=== PATIENT | male | born 1945 | race Caucasian/White ===

== ENCOUNTER 2018-10-25 09:04 | Inpatient (IN) | payer BC, MEDICARE, SELFPAY ==
[2018-10-25] VITALS (10 sets, daily range): BP systolic 127–166; BP diastolic 63–97; PULSE 55–64; RESP 14–18; TEMP 36.8–37.1; O2SAT 93–98; BMI 28.8; BMI 28.1; BMI 28.2
--- NOTE | 2018-10-25 09:17 | CT_ITS ---
STUDY: CT ABDOMEN AND PELVIS WITH CONTRAST REASON FOR EXAM: Male, 73 years old. Abdominal pain and vomiting. RADIATION DOSAGE (If Supplied By Facility): CTDIvol = ( 16.91 ) mGy, DLP = ( 1449.93 ) mGycm TECHNIQUE: Transaxial images were obtained from the dome of the diaphragm to the symphysis pubis without oral contrast. Isovue 300 100 IV was administered. Sagittal and coronal images were reconstructed. Individualized dose optimization techniques were used for this CT. COMPARISON: None. FINDINGS: Mild degree of increased markings at the lung bases with small cystic spaces suggestive of chronic interstitial fibrosis. Coronary artery calcification. There is decreased attenuation of the liver consistent with steatosis. Normal gallbladder and extrahepatic biliary system. There is mild splenomegaly. Normal pancreas. Normal bilateral adrenal glands. Normal right kidney. There is a 2.1 cm x 2.1 cm cyst in the upper pole of the left kidney. There is a small hiatal hernia. There is a moderate degree of fluid distention of the stomach. There are dilated loops of the small intestine with a non-distended colon consistent with a small bowel obstruction. The transition point is the proximal ileum. There are multiple colonic diverticula consistent with diverticulosis. The appendix is visualized and appears normal. Normal abdominal aorta. Normal inferior vena cava. Normal retroperitoneum. Distended urinary bladder. There is enlargement of the prostate gland. Small bilateral inguinal hernias containing fat. This is larger on the left side. There are degenerative changes of the visualized lumbar spine. Mild levoscoliosis. CT/Abdomen/Pelvis W IV Cont ONLY IMPRESSION: Findings indicative of small bowel obstruction with the transition point in the proximal ileum. Fluid distended stomach. Sigmoid diverticulosis. Enlarged prostate. Electronically Signed: Huy Dodson, at 11:22 EST , Service support ,
[2018-10-25] MEDS: 0.9% Normal Saline 1,000 ML 1000 ML IV (09:41)
--- NOTE | 2018-10-25 09:55 | ED.DCSUM_ITS ---
- ER Visit Summary Date of Service: 10/25/18 Chief Complaint: Abdominal pain History of Present Illness: The patient is a 73 M with lower abdominal pain for 3 days. The pain came on gradually and has been continuous. It feels like cramping. He never had this before. Nothing seemed to bring it on or make it worse. Associate with nausea, vomiting, and constipation. He denies any history of abdominal surgeries. He does have a history of diabetes and hypertension. He never had a colonoscopy. Denies fevers or bleeding. Denies urinary symptoms. Physical Examination: Afebrile and vital signs unremarkable except for a blood pressure of 164/97. He appears alert and oriented. No acute distress. Sitting comfortably. Heart regular rate and rhythm. Lungs clear. Abdomen tender in the lower hemiabdomen. No guarding or rebound. No distention. Normal bowel sounds. Skin normal in color without pallor or jaundice. Test Results: Laboratory studies, urinalysis, and CT pending. Emergency Department Course and Treatment: Patient declined pain medicine. He was treated with IV fluids while awaiting results. CBC normal. Metabolic panel showed a glucose of 447. Hepatic and lipase normal. Urinalysis unremarkable. CT showed a small bowel obstruction with a transition point in the proximal ileum with an enlarged prostate. NG was placed. KUB pending. Patient treated with additional fluids as well as insulin lispro. He said he has not been taking his metformin, glimepiride, and Starlix over the last couple days because of his symptoms. Dr. Chaves was contacted, but he is in the operating room. I left a message with the nurse. I do not believe the patient will need emergent surgery, furthermore he is on Eliquis. I spoke with Dr. Vee who will admit the patient. Treatment Plan: As above Disposition: Admission Impression: 1. Small bowel obstruction 2. Hyperglycemia This note was generated with [employer] dictation software. It may contain incorrect words, spelling, and punctuation that were not noted in review of the chart prior to signing ED Disposition - Plan for ED Patient: Referrals: Care Physician,No Primary [Primary Care Provider] -
[2018-10-25 09:58] LABS: Absolute Lymphocyte Count 2.05 X10^3/ul (0.83-4.51); Absolute Neutrophil Count 7.1 X10^3/uL (2.0-7.7); Basophil# 0.02 X10^3/uL; Basophil% 0.2 % (0-1); Eosinophil# 0.02 X10^3/uL; Eosinophils% 0.2 % (0-5); Hematocrit 48.3 % (40-54); Hemoglobin 16.1 g/dl (13.0-16.5); Lymphocyte # 2.05 X10^3/ul (4.0); Lymphocyte % 19.9 % (19-41); Mean Corp Hgb Conc 33.3 g/gl (32-36); Mean Corpuscular Hgb 31.6 pg (27.0-32.0); Mean Corpuscular Volume 94.9 fL (80-94); Mean Platelet Vol. 9.5 fl (6.2-12.0); Monocyte# 1.08 X10^3/uL; Monocyte% 10.5 % (0-10); Neutrophil # 7.11 X10^3/uL (2.7-7.7); Neutrophil % 68.9 % (47-70); POSITIVE COUNT NO; POSITIVE DIFFERENTIAL NO; POSITIVE MORPHOLOGY NO; Platelet Count 223 K/mm3 (150-450); RBC Distribution Width CV 13.2 % (11.6-14.6); RBC Distribution Width SD 45.4 fl (35.1-43.9); Red Blood Count 5.09 M/mm3 (4.6-6.2); White Blood Count 10.3 K/mm3 (4.4-11.0)
[2018-10-25 10:11] LABS: ALB/GLOB Ratio 0.9 RATIO (0.9-2.4); AST(SGOT) 25 U/L (15-37); Alanine Aminotransfer ALT/SGPT 30 U/L (16-61); Albumin, Serum 3.6 g/dL (3.2-5.0); Alkaline Phosphatase 93 U/L (45-117); Anion Gap 10 (5-15); BUN 28 mg/dL (7-18); BUN/Creat Ratio 20.6 RATIO (10-20); Calcium,Total 9.5 mg/dL (8.5-10.1); Chloride 97 mmol/L (98-107); Creatinine, Serum 1.36 mg/dL (0.70-1.30); EST Glomerular Filtration Rate 55 mL/min (>60); Est Glom Filt Rate - Afr Amer 66 mL/min (>60); Estimated Creatinine Clearance 56.24 ml/min; Globulin 4.1 g/dL (2.2-4.2); Glucose 447 mg/dL (74-106); Lipase 144 U/L (73-393); Protein, Total 7.7 g/dL (6.4-8.2); Sodium Level 131 mmol/L (136-145)
[2018-10-25 11:00] LABS: Bacteria 0 SEEN /hpf (None Seen); Mucous, Urine 0 SEEN /hpf (<or=2+); Red Blood Cells-Urine 0 SEEN /hpf (0-5); Squamous Epithelial Cells - UA 0 SEEN /hpf (0-5); White Blood Cells 0 SEEN /hpf (0-5)
[2018-10-25 11:04] LABS: Color, Urine Yellow (Yellow); Glucose, Dipstick 1000 mg/dl (Normal); Ketone-Dipstick 50 mg/dl (Negative); Leukocyte Esterase-Dipstick Negative /ul (Negative); Nitrite-Dipstick Negative (Negative); Occult Blood-Urine Negative /ul (Negative); Protein-Dipstick Negative (Negative); Specific Gravity, Urine 1.015 (1.002-1.030); Urine Bilirubin Dipstick Negative (Negative); Urine Clarity Clear (Clear); Urine Urobilinogen Normal (Normal)
--- NOTE | 2018-10-25 11:33 | RAD_ITS ---
STUDY: X-RAY - ABDOMEN/PELVIS REASON FOR EXAM: Male, 73 years old. Nasogastric tube placement TECHNIQUE: Single AP view of the abdomen / pelvis. COMPARISON: CT scan of the same day.. FINDINGS: Normal visualized lung bases. Nasogastric tube terminates in the upper stomach. There is a continued abnormal bowel gas pattern consistent with small bowel obstruction. Electronically Signed: Deny Chavez MD at 13:56 EST , Service support , RAD/Abdomen Single View (Portable)
[2018-10-25] MEDS: 0.9% Normal Saline 1,000 ML 999 ML IV (11:36)
[2018-10-25] MEDS: Insulin Lispro 100 UNIT/ML INSULN.PEN 10 UNIT SC (11:37)
--- NOTE | 2018-10-25 12:23 | CASEMGMT ---
RN CM Assessment Introduced role of RN CM to patient and significant other Renetta Estrada at bedside. Patient is alert, oriented and able to participate in RN CM Assessment. Care providers, pharmacy, and demographics verified. Presentation: Admitted for SBO. CC: Abd pain, N/V, Constipation. PCP: Dr Yanet [facility]- [facility]. Specialists: None Preferred Pharmacy: [facility] Insurance: Medicare A&B, [place] Prescription Benefit: Yes LNOK: Renetta Estrada Living Arrangements: Works for [employer], Lives 1/2 time at his home which is 2 story and has 3 steps. Lives other 1/2 time at [facility]- Split level at [address], [place] [address]. Independent with ambulation and ADL's. Transportation: Patient drives, DC transport- Ren[facility] DME: None, Needs a Glucometer as his broke. No preference on DME Company. HHC: None in past, No preference on Agency. SNF: None in past, No preference on Facility. DC PLAN: Home with no anticipated needs identified. Frances Douglas RNCM
--- NOTE | 2018-10-25 13:41 | NURSING ---
Addendum entered by Aurora Gallagher 10/25/18 14:48: discussed policy on gastrograffin w/ Madeline Pablo BLOOD BANK LABORATORY TECHNICIAN-RN Original Note: Received verbal order from Dr. Vee to give 150ml gastrograffin down NGT, get abdominal xray in 4 hours after gastrograffin is given and then again in a.m. which will assist in determination if Dr. Chaves takes the patient to OR tomorrow. Talked with radiology department regarding how to put order into computer. Aware per radiology that they have gastrograffin in radiology department that someone must come down to get. CONTACT CENTRE SUPERVISOR returned to unit with 5bottles of 30ml gastrograffin each. Discussed orders, policy of nursing administering gastrographin with assistance rn case manager hospice Wojciech, and primary RN. Discussed w/ Dr. Vee regarding her administering the gastrographin herself. Radha Og RN discussed order with Dr. Chaves at 's request. Radha Og obtained new order and discussed w/ Wojciech Assist. Managed Care Nurse.
--- NOTE | 2018-10-25 13:54 | PCM.HP.STD ---
Problem List (1) SBO (small bowel obstruction) Status: Acute (2) Type 2 diabetes mellitus Status: Chronic (3) HTN (hypertension) Status: Chronic (4) Atrial fibrillation Status: Chronic Qualifiers: Atrial fibrillation type: paroxysmal Qualified Code(s): I48.0 - Paroxysmal atrial fibrillation History of Present Illness Date of Admission: 10/25/18 Chief Complaint: Abdominal pain. The patient is a 73 year old M who presents the emergency room due to abdominal pain. Patient states his pain initially began Monday and he describes it as a cramping across his lower abdomen. He states pain has been worsening since it initially started on Monday. He reports his last bowel movement was Monday. He reports he typically has more regular bowel movements. He describes poor oral intake and associated nausea, vomiting. He denies history of small bowel obstruction. Denies other associated complaints. States he has never been hospitalized before. He has a past medical history of paroxysmal atrial fibrillation on anticoagulation with Eliquis, hypertension, type 2 diabetes mellitus. Past Medical History Past Medical History (Chronic Problems): Chronic Problems Type 2 diabetes mellitus (Chronic) HTN (hypertension) (Chronic) Atrial fibrillation (Chronic) Allergies No Known Allergies Allergy (Verified 10/25/18 09:07) Home Medications: Ambulatory Orders Medication Instructions Recorded Apixaban [Eliquis] 5 mg PO DAILY 10/25/18 Atenolol [Tenormin (beta wero)] 100 mg PO DAILY 10/25/18 Lisinopril/Hydrochlorothiazide 1 each PO DAILY 10/25/18 [Lisinopril-Hctz 10-12.5 mg Tab] Metformin HCl [Glucophage] 1,000 mg PO BIDCM 10/25/18 Nateglinide 1 tab PO DAILY 10/25/18 Tadalafil [Cialis] 5 mg PO DAILY PRN 10/25/18 Verapamil [Calan Sr] 240 mg PO DAILY 10/25/18 Surgical History: no surgical history Psychiatric History: No pertinent psych hx Lives: Spouse/ Significant Other Smoking Status: Never smoker Alcohol: None Drugs: None - *Family History Maternal History Items: - - Mother in her 40s from unknown cause, possible appendix rupture? Paternal History Items: Heart Disease Review of Systems Constitutional: Denies: Chills, Fever, Weight Change HEENT: Denies: Head Aches, Sinus Congestion, Sinus Drainage Cardiovascular: Denies: Chest Pain, Edema, Light Headedness, Palpitations, Syncope Respiratory: Denies: Cough, Shortness of Breath, Shortness of breath at rest, Sputum production Gastrointestinal: Reports: Abdominal Pain, Constipation, Nausea, Vomiting Genitourinary: Denies: Dysuria Musculoskeletal: Denies: Joint Pain, Joint Tenderness Skin: Denies: Rash, Wounds Neurological: Denies: Numbness, Tingling, Focal weakness Psychiatric: Denies: Anxiety, Depression, Homicidal Ideations, Suicidal Ideations Hematologic/ Lymphatic: Denies: Easy Bruising, Easy Bleeding VTE Information - Inpt Only VTE Present on Admission: No VTE Mechan Device Prophylaxis: None VTE Pharm Prophylaxis ordered?: Yes Patient Problems: Active and Suspected Problems SBO (small bowel obstruction) (Acute) - Physical Exam General: Alert, Oriented x3, Cooperative HEENT: Atraumatic, PERRLA, EOMI, Normocephalic Neck: Supple, No JVD, Negative Carotid Bruits Lungs: Clear to auscultation, Normal air movement Cardiovascular: Regular rate, No murmurs Abdomen: Non Tender, Hypoactive Bowel Sounds, Distended Extremities: No clubbing, No cyanosis, No edema, Capillary Refill Less than 3 Seconds Skin: No rashes, No breakdown Musculoskeletal: No Tenderness to Palpation of Joints or Extremities Neurological: Cranial nerves II-XII grossly intact, Neuro grossly intact Psych/Mental Status: Normal Affect, Appropriate Vital Signs Temp Pulse Resp BP Pulse Ox 98.2 F 59 L 18 148/73 H 98 10/25/18 13:01 10/25/18 13:01 10/25/18 13:01 10/25/18 13:01 10/25/18 13:01 Oxygen Delivery Method Room Air Weight: 219 lb 8 oz Body Mass Index (BMI) 28.1 Intake and Output for Last 24 Hours 10/23/18 10/24/18 10/25/18 23:59 23:59 23:59 Output Total 1200 / 1200 Balance -1200 / -1200 Laboratory Tests Past 24 Hrs 10/25/18 10/25/18 10/25/18 09:39 09:39 10:55 WBC 10.3 RBC 5.09 Hgb 16.1 Hct 48.3 MCV 94.9 H MCH 31.6 MCHC 33.3 RDW 13.2 RDW Differential 45.4 H Plt Count 223 MPV 9.5 Immature Gran % (Auto) 0.300 Neut % (Auto) 68.9 Lymph % (Auto) 19.9 Mitchell % (Auto) 10.5 H Eos % (Auto) 0.2 Baso % (Auto) 0.2 Absolute Neuts (auto) 7.1 Absolute Lymphs (auto) 2.05 Total Counted Not Reportable Sodium 131 L Potassium 4.0 Chloride 97 L Carbon Dioxide 24.0 Anion Gap 10 BUN 28 H Creatinine 1.36 H Estim Creat Clear Calc 56.24 Est GFR (MDRD) Af Amer 66 Est GFR (MDRD) Non-Af 55 L BUN/Creatinine Ratio 20.6 H Glucose 447 H Calcium 9.5 Total Bilirubin 1.20 H AST 25 ALT 30 Alkaline Phosphatase 93 Total Protein 7.7 Albumin 3.6 Globulin 4.1 Albumin/Globulin Ratio 0.9 Lipase 144 Urine Color Yellow Urine Clarity Clear Urine pH 6.0 Ur Specific [place] 1.015 Urine Protein Negative Urine Glucose (UA) 1000 H Urine Ketones 50 H Urine Occult Blood Negative Urine Nitrite Negative Urine Bilirubin Negative Urine Urobilinogen Normal Ur Leukocyte Esterase Negative Urine RBC 0 SEEN Urine WBC 0 SEEN Ur Squamous Epith Cells 0 SEEN Urine Bacteria 0 SEEN Urine Mucus 0 SEEN Assessment/Plan All Active Problems SBO (small bowel obstruction) (Acute) 1. Small bowel obstruction-CT of abdomen and pelvis showed small bowel obstruction with transition point in the proximal ileum. Fluid distended stomach. Sigmoid diverticulosis. Enlarged prostate. NG placed in ER. N.p.o. IV fluids. Gastrografin ordered followed by abdominal x-ray now with repeat in a.m. Dr. Chaves consulted from ER. 2. Hyperglycemia with type 2 diabetes mellitus-oral regimen on hold given n.p.o. status. Accu-Cheks Q6 hour with SSI. Continue to monitor. Check hemoglobin A1c. 3. Paroxysmal atrial fibrillation-obtain EKG. Hold Eliquis. Scheduled IV Lopressor. 4. Hypertension-resume home atenolol, lisinopril, verapamil regimen when able to tolerate oral intake. Scheduled IV Lopressor 5 mg every 8 with as needed hydralazine. 5. Elevated creatinine-suspect secondary to dehydration is resolved #1. Unknown baseline. Trend BMP. IV fluids. DVT prophylaxis-Lovenox sc This patient was seen by REZA Fiore under the supervision of Dr. Vee.
--- NOTE | 2018-10-25 14:23 | EKG12_ITS ---
Test Reason : PRE OP Blood Pressure : / mmHG Vent. Rate : 058 BPM Atrial Rate : 058 BPM P-R Int : 190 ms QRS Dur : 104 ms QT Int : 472 ms P-R-T Axes : 068 -15 -03 degrees QTc Int : 463 ms Sinus bradycardia Otherwise normal ECG No previous ECGs available Confirmed by ODIN LIVIGNSTON, KEERTHI ([id number]), supervising editor news reel LYNDON ZAVALETA ([id number]) on 10/29/2018 2:45:48 PM Referred By: VANESSA Confirmed By:KEERTHI NEWBY MD
[2018-10-25 14:51] LABS: Hemoglobin A1c 11.3 % (4.2-6.3)
[2018-10-25] MEDS: 0.9% Normal Saline 1,000 ML 150 ML IV ×2 (14:54→22:18)
[2018-10-25] MEDS: Insulin Lispro 100 UNIT/ML INSULN.PEN SC ×3 (15:29→23:33)
[2018-10-25 15:35] LABS: Bedside Glucose 333 mg/dL (70-110)
--- NOTE | 2018-10-25 17:06 | NURSING ---
DR COLIN AT BEDSIDE ASSESSING PATIENT. ADMINISTERED GASTROGRAFFIN 150CC VIA NG WITH 30 CC FLUSH OF STERILE WATER. NG REMAINS CLAMPED AT THIS TIME. KUB TO BE COMPLETED AT 1999.
[2018-10-25 18:35] LABS: Bedside Glucose 249 mg/dL (70-110)
[2018-10-25] MEDS: 0.9% NaCl Peripheral Flush Adult/Peds IV (20:03)
--- NOTE | 2018-10-25 20:10 | RAD_ITS ---
STUDY: X-RAY - ABDOMEN/PELVIS REASON FOR EXAM: Male, 73 years old. Abdominal pain. TECHNIQUE: Single AP view of the abdomen / pelvis. Water-soluble contrast was passed through the nasogastric tube. COMPARISON: Same day, 12:34 PM. FINDINGS: Contrast is seen in the stomach. Contrast has passed into markedly distended loops of small bowel measuring as much as 7 cm. No contrast is seen in the right lower quadrant or in the colon. RAD/Abdomen Single View IMPRESSION: Markedly distended small bowel loops. By 8:00 PM, no contrast has reached the distal small bowel or large bowel. Electronically Signed: Deny Chavez MD at 21:49 EST , Service support ,
--- NOTE | 2018-10-25 22:45 | RAD_ITS ---
STUDY: X-RAY - ABDOMEN/PELVIS REASON FOR EXAM: Male, 73 years old. Nasogastric tube placement. TECHNIQUE: Single AP view of the abdomen / pelvis. COMPARISON: Radiographs of earlier today.. FINDINGS: A nasogastric tube is seen terminating at the esophagogastric junction, and should be advanced at least 12 to 15 cm. Electronically Signed: Deny Chavez MD at 22:59 EST , Service support , RAD/Abdomen Single View (Portable)
--- NOTE | 2018-10-25 23:14 | NURSING ---
Xray result post NG inserted advised to advance at least a further 12-15cm. Advanced another 15cm and green liquid now coming through tubing.
[2018-10-25 23:46] LABS: Bedside Glucose 236 mg/dL (70-110)
[2018-10-26] VITALS (13 sets, daily range): BP systolic 133–148; BP diastolic 73–89; PULSE 52–68; RESP 16–18; TEMP 36.6–36.8; O2SAT 94–98
--- NOTE | 2018-10-26 02:19 | PCM.CONS.GEN ---
Problem List (1) SBO (small bowel obstruction) Status: Acute Reason for Consult Date of Consultation: 10/25/18 Reason for Consultation: Small bowel obstruction History of Present Illness: The patient is a 73 year old M presented to the hospital with pain for 2 days. The patient reports that he passed a small amount of flatus earlier today. He had his last bowel movement on Monday. He reports that he was having some lower abdominal cramping but this did improve with NG placement. He has no surgical history. He has never had a bowel obstruction in the past. He reports that his pain was lower abdominal. He is having no blood in his stool or diarrhea. He reports no dysuria. Past Medical History Past Medical History (Chronic Problems): Chronic Problems Type 2 diabetes mellitus (Chronic) HTN (hypertension) (Chronic) Atrial fibrillation (Chronic) Allergies No Known Allergies Allergy (Verified 10/25/18 09:07) Home Medications: Ambulatory Orders Medication Instructions Recorded Apixaban [Eliquis] 5 mg PO DAILY 10/25/18 Atenolol [Tenormin (beta wero)] 100 mg PO DAILY 10/25/18 Lisinopril/Hydrochlorothiazide 1 each PO DAILY 10/25/18 [Lisinopril-Hctz 10-12.5 mg Tab] Metformin HCl [Glucophage] 1,000 mg PO BIDCM 10/25/18 Nateglinide 1 tab PO DAILY 10/25/18 Tadalafil [Cialis] 5 mg PO DAILY PRN 10/25/18 Verapamil [Calan Sr] 240 mg PO DAILY 10/25/18 Surgical History: no surgical history Psychiatric History: No pertinent psych hx Lives: Spouse/ Significant Other Smoking Status: Never smoker Alcohol: None Drugs: None - *Family History Maternal History Items: - - Mother in her 40s from unknown cause, possible appendix rupture? Paternal History Items: Heart Disease Review of Systems Constitutional: Reports: Anorexia. Denies: Fever HEENT: Denies: Difficulty Swallowing Cardiovascular: Denies: Chest Pain Respiratory: Denies: Cough Gastrointestinal: Reports: Abdominal Pain, Constipation, Nausea, Vomiting. Denies: Diarrhea, Hematemesis, Hematochezia Genitourinary: Denies: Dysuria Musculoskeletal: Denies: Leg Pain Skin: Denies: Dryness, Jaundice Hematologic/ Lymphatic: Reports: Easy Bleeding. Denies: Anemia Patient Problems: Active and Suspected Problems SBO (small bowel obstruction) (Acute) - Physical Exam General: Alert, Oriented x3, Cooperative, No apparent distress HEENT: Atraumatic Neck: No JVD Lungs: Normal air movement Cardiovascular: Regular rate, Regular Rhythm Abdomen: Soft, Distended Extremities: No clubbing Musculoskeletal: No Muscle Wasting Vital Signs Temp Pulse Resp BP Pulse Ox 98.4 F 58 L 18 127/63 H 94 10/25/18 22:14 10/25/18 23:59 10/25/18 22:14 10/25/18 22:14 10/25/18 22:14 Oxygen Delivery Method Room Air Weight: 219 lb 8 oz Body Mass Index (BMI) 28.1 Intake and Output for Last 24 Hours 10/24/18 10/25/18 10/26/18 23:59 23:59 23:59 Intake Total 1228 / 1228 Output Total 1800 / 1800 Balance -572 / -572 Laboratory Tests Past 24 Hrs 10/25/18 10/25/18 10/25/18 09:39 09:39 09:39 WBC 10.3 RBC 5.09 Hgb 16.1 Hct 48.3 MCV 94.9 H MCH 31.6 MCHC 33.3 RDW 13.2 RDW Differential 45.4 H Plt Count 223 MPV 9.5 Immature Gran % (Auto) 0.300 Neut % (Auto) 68.9 Lymph % (Auto) 19.9 [place] % (Auto) 10.5 H Eos % (Auto) 0.2 Baso % (Auto) 0.2 Absolute Neuts (auto) 7.1 Absolute Lymphs (auto) 2.05 Total Counted Not Reportable Sodium 131 L Potassium 4.0 Chloride 97 L Carbon Dioxide 24.0 Anion Gap 10 BUN 28 H Creatinine 1.36 H Estim Creat Clear Calc 56.24 Est GFR (MDRD) Af Amer 66 Est GFR (MDRD) Non-Af 55 L BUN/Creatinine Ratio 20.6 H Glucose 447 H Hemoglobin A1c 11.3 H Calcium 9.5 Total Bilirubin 1.20 H AST 25 ALT 30 Alkaline Phosphatase 93 Total Protein 7.7 Albumin 3.6 Globulin 4.1 Albumin/Globulin Ratio 0.9 Lipase 144 Urine Color Urine Clarity Urine pH Ur Specific [place] Urine Protein Urine Glucose (UA) Urine Ketones Urine Occult Blood Urine Nitrite Urine Bilirubin Urine Urobilinogen Ur Leukocyte Esterase Urine RBC Urine WBC Ur Squamous Epith Cells Urine Bacteria Urine Mucus 10/25/18 10:55 WBC RBC Hgb Hct MCV MCH MCHC RDW RDW Differential Plt Count MPV Immature Gran % (Auto) Neut % (Auto) Lymph % (Auto) [place] % (Auto) Eos % (Auto) Baso % (Auto) Absolute Neuts (auto) Absolute Lymphs (auto) Total Counted Sodium Potassium Chloride Carbon Dioxide Anion Gap BUN Creatinine Estim Creat Clear Calc Est GFR (MDRD) Af Amer Est GFR (MDRD) Non-Af BUN/Creatinine Ratio Glucose Hemoglobin A1c Calcium Total Bilirubin AST ALT Alkaline Phosphatase Total Protein Albumin Globulin Albumin/Globulin Ratio Lipase Urine Color Yellow Urine Clarity Clear Urine pH 6.0 Ur Specific [place] 1.015 Urine Protein Negative Urine Glucose (UA) 1000 H Urine Ketones 50 H Urine Occult Blood Negative Urine Nitrite Negative Urine Bilirubin Negative Urine Urobilinogen Normal Ur Leukocyte Esterase Negative Urine RBC 0 SEEN Urine WBC 0 SEEN Ur Squamous Epith Cells 0 SEEN Urine Bacteria 0 SEEN Urine Mucus 0 SEEN POC Glucose 10/25/18 10/25/18 10/25/18 23:31 18:29 15:25 POC Glucose 236 H 249 H 333 H Clinical Impression(s) from Imaging Studies Abdomen/Pelvis CT 10/25/18 09:17 IMPRESSION: Findings indicative of small bowel obstruction with the transition point in the proximal ileum. Fluid distended stomach. Sigmoid diverticulosis. Enlarged prostate. Electronically Signed: Huy Dodson, at 11:22 EST , Service support , KUB X-Ray 10/25/18 11:33 KUB X-Ray 10/25/18 20:10 IMPRESSION: Markedly distended small bowel loops. By 8:00 PM, no contrast has reached the distal small bowel or large bowel. Electronically Signed: Deny Chavez MD at 21:49 EST , Service support , KUB X-Ray 10/25/18 22:45 Assessment/Plan All Active Problems SBO (small bowel obstruction) (Acute) 73-year-old male with small bowel obstruction 1. Patient had a CT scan which showed dilated small bowel with a transition point in the mid ileum. The colon is decompressed as is the distal small bowel. The patient has no surgical history making his bowel obstruction concerning. There does not appear to be a closed loop. After NG was placed his abdomen was less tender. He appears distended with no guarding or rebound. 2. I will order Gastrografin to be given to the patient with an x-ray later tonight as well as in the morning. NG will be placed back to suction in between the x-rays. If Gastrografin reaches the colon this is not a complete obstruction and he will be observed. If the contrast fails to reach the colon he will be taken for laparoscopy. The patient is on Brilinta I will asked that this will be held for now. Gary Chaves MD Pager: [facility] [address] [place] [address], [address] [place] [address] Office:
--- NOTE | 2018-10-26 02:23 | CON.PCM_ITS ---
Problem List (1) SBO (small bowel obstruction) Status: Acute Reason for Consult Date of Consultation: 10/25/18 Reason for Consultation: Small bowel obstruction History of Present Illness: The patient is a 73 year old M presented to the hospital with pain for 2 days. The patient reports that he passed a small amount of flatus earlier today. He had his last bowel movement on Monday. He reports that he was having some lower abdominal cramping but this did improve with NG placement. He has no surgical history. He has never had a bowel obstruction in the past. He reports that his pain was lower abdominal. He is having no blood in his stool or diarrhea. He reports no dysuria. Past Medical History Past Medical History (Chronic Problems): Chronic Problems Type 2 diabetes mellitus (Chronic) HTN (hypertension) (Chronic) Atrial fibrillation (Chronic) Allergies No Known Allergies Allergy (Verified 10/25/18 09:07) Home Medications: Ambulatory Orders Medication Instructions Recorded Apixaban [Eliquis] 5 mg PO DAILY 10/25/18 Atenolol [Tenormin (beta wero)] 100 mg PO DAILY 10/25/18 Lisinopril/Hydrochlorothiazide 1 each PO DAILY 10/25/18 [Lisinopril-Hctz 10-12.5 mg Tab] Metformin HCl [Glucophage] 1,000 mg PO BIDCM 10/25/18 Nateglinide 1 tab PO DAILY 10/25/18 Tadalafil [Cialis] 5 mg PO DAILY PRN 10/25/18 Verapamil [Calan Sr] 240 mg PO DAILY 10/25/18 Surgical History: no surgical history Psychiatric History: No pertinent psych hx Lives: Spouse/ Significant Other Smoking Status: Never smoker Alcohol: None Drugs: None - *Family History Maternal History Items: - - Mother in her 40s from unknown cause, possible appendix rupture? Paternal History Items: Heart Disease Review of Systems Constitutional: Reports: Anorexia. Denies: Fever HEENT: Denies: Difficulty Swallowing Cardiovascular: Denies: Chest Pain Respiratory: Denies: Cough Gastrointestinal: Reports: Abdominal Pain, Constipation, Nausea, Vomiting. Denies: Diarrhea, Hematemesis, Hematochezia Genitourinary: Denies: Dysuria Musculoskeletal: Denies: Leg Pain Skin: Denies: Dryness, Jaundice Hematologic/ Lymphatic: Reports: Easy Bleeding. Denies: Anemia Patient Problems: Active and Suspected Problems SBO (small bowel obstruction) (Acute) - Physical Exam General: Alert, Oriented x3, Cooperative, No apparent distress HEENT: Atraumatic Neck: No JVD Lungs: Normal air movement Cardiovascular: Regular rate, Regular Rhythm Abdomen: Soft, Distended Extremities: No clubbing Musculoskeletal: No Muscle Wasting Vital Signs Temp Pulse Resp BP Pulse Ox 98.4 F 58 L 18 127/63 H 94 10/25/18 22:14 10/25/18 23:59 10/25/18 22:14 10/25/18 22:14 10/25/18 22:14 Oxygen Delivery Method Room Air Weight: 219 lb 8 oz Body Mass Index (BMI) 28.1 Intake and Output for Last 24 Hours 10/24/18 10/25/18 10/26/18 23:59 23:59 23:59 Intake Total 1228 / 1228 Output Total 1800 / 1800 Balance -572 / -572 Laboratory Tests Past 24 Hrs 10/25/18 10/25/18 10/25/18 09:39 09:39 09:39 WBC 10.3 RBC 5.09 Hgb 16.1 Hct 48.3 MCV 94.9 H MCH 31.6 MCHC 33.3 RDW 13.2 RDW Differential 45.4 H Plt Count 223 MPV 9.5 Immature Gran % (Auto) 0.300 Neut % (Auto) 68.9 Lymph % (Auto) 19.9 [place] % (Auto) 10.5 H Eos % (Auto) 0.2 Baso % (Auto) 0.2 Absolute Neuts (auto) 7.1 Absolute Lymphs (auto) 2.05 Total Counted Not Reportable Sodium 131 L Potassium 4.0 Chloride 97 L Carbon Dioxide 24.0 Anion Gap 10 BUN 28 H Creatinine 1.36 H Estim Creat Clear Calc 56.24 Est GFR (MDRD) Af Amer 66 Est GFR (MDRD) Non-Af 55 L BUN/Creatinine Ratio 20.6 H Glucose 447 H Hemoglobin A1c 11.3 H Calcium 9.5 Total Bilirubin 1.20 H AST 25 ALT 30 Alkaline Phosphatase 93 Total Protein 7.7 Albumin 3.6 Globulin 4.1 Albumin/Globulin Ratio 0.9 Lipase 144 Urine Color Urine Clarity Urine pH Ur Specific [place] Urine Protein Urine Glucose (UA) Urine Ketones Urine Occult Blood Urine Nitrite Urine Bilirubin Urine Urobilinogen Ur Leukocyte Esterase Urine RBC Urine WBC Ur Squamous Epith Cells Urine Bacteria Urine Mucus 10/25/18 10:55 WBC RBC Hgb Hct MCV MCH MCHC RDW RDW Differential Plt Count MPV Immature Gran % (Auto) Neut % (Auto) Lymph % (Auto) [place] % (Auto) Eos % (Auto) Baso % (Auto) Absolute Neuts (auto) Absolute Lymphs (auto) Total Counted Sodium Potassium Chloride Carbon Dioxide Anion Gap BUN Creatinine Estim Creat Clear Calc Est GFR (MDRD) Af Amer Est GFR (MDRD) Non-Af BUN/Creatinine Ratio Glucose Hemoglobin A1c Calcium Total Bilirubin AST ALT Alkaline Phosphatase Total Protein Albumin Globulin Albumin/Globulin Ratio Lipase Urine Color Yellow Urine Clarity Clear Urine pH 6.0 Ur Specific [place] 1.015 Urine Protein Negative Urine Glucose (UA) 1000 H Urine Ketones 50 H Urine Occult Blood Negative Urine Nitrite Negative Urine Bilirubin Negative Urine Urobilinogen Normal Ur Leukocyte Esterase Negative Urine RBC 0 SEEN Urine WBC 0 SEEN Ur Squamous Epith Cells 0 SEEN Urine Bacteria 0 SEEN Urine Mucus 0 SEEN POC Glucose 10/25/18 10/25/18 10/25/18 23:31 18:29 15:25 POC Glucose 236 H 249 H 333 H Clinical Impression(s) from Imaging Studies Abdomen/Pelvis CT 10/25/18 09:17 IMPRESSION: Findings indicative of small bowel obstruction with the transition point in the proximal ileum. Fluid distended stomach. Sigmoid diverticulosis. Enlarged prostate. Electronically Signed: Huy Dodson, at 11:22 EST , Service support , KUB X-Ray 10/25/18 11:33 KUB X-Ray 10/25/18 20:10 IMPRESSION: Markedly distended small bowel loops. By 8:00 PM, no contrast has reached the distal small bowel or large bowel. Electronically Signed: Deny Chavez MD at 21:49 EST , Service support , KUB X-Ray 10/25/18 22:45 Assessment/Plan All Active Problems SBO (small bowel obstruction) (Acute) 73-year-old male with small bowel obstruction 1. Patient had a CT scan which showed dilated small bowel with a transition point in the mid ileum. The colon is decompressed as is the distal small bowel. The patient has no surgical history making his bowel obstruction concerning. There does not appear to be a closed loop. After NG was placed his abdomen was less tender. He appears distended with no guarding or rebound. 2. I will order Gastrografin to be given to the patient with an x-ray later tonight as well as in the morning. NG will be placed back to suction in between the x-rays. If Gastrografin reaches the colon this is not a complete obstruction and he will be observed. If the contrast fails to reach the colon he will be taken for laparoscopy. The patient is on Brilinta I will asked that this will be held for now. Gary Chaves MD Pager: [facility] [address] [place] [address], [address] [place] [address] Office:
--- NOTE | 2018-10-26 05:00 | RAD_ITS ---
STUDY: X-RAY - ABDOMEN/PELVIS REASON FOR EXAM: Male, 73 years old. Small bowel obstruction TECHNIQUE: 5 views of the abdomen were obtained COMPARISON: 10/25/2018 FINDINGS: NG tube is in the stomach. There is barium throughout the colon including the sigmoid and rectum. There are dilated air-filled loops of small bowel with multiple air-fluid levels. Findings suggest incomplete obstruction versus ileus. There is NO bowel wall thickening or free air. Bony and soft tissue structures are unremarkable. RAD/Abd Inc Decub and/or Erect IMPRESSION: NG tube is in the stomach. There is barium throughout the colon including the sigmoid and rectum. There are dilated air-filled loops of small bowel with multiple air-fluid levels. Findings suggest incomplete obstruction versus ileus. There is NO bowel wall thickening or free air. Electronically Signed: Lazaro Valentino MD at 5:32 EST , Service support ,
[2018-10-26] MEDS: 0.9% Normal Saline 1,000 ML 150 ML IV ×3 (05:27→19:24)
[2018-10-26] MEDS: Insulin Lispro 100 UNIT/ML INSULN.PEN SC ×3 (05:28→18:34)
[2018-10-26 06:30] LABS: Bedside Glucose 316 mg/dL (70-110)
[2018-10-26 06:40] LABS: Absolute Lymphocyte Count 2.29 X10^3/ul (0.83-4.51); Basophil# 0.02 X10^3/uL; Basophil% 0.2 % (0-1); Eosinophil# 0.05 X10^3/uL; Eosinophils% 0.6 % (0-5); Hematocrit 44.7 % (40-54); Hemoglobin 14.8 g/dl (13.0-16.5); Lymphocyte # 2.29 X10^3/ul (4.0); Mean Corp Hgb Conc 33.1 g/gl (32-36); Mean Corpuscular Hgb 32.1 pg (27.0-32.0); Mean Platelet Vol. 9.6 fl (6.2-12.0); Monocyte# 1.05 X10^3/uL; Monocyte% 12.4 % (0-10); Neutrophil # 5.02 X10^3/uL (2.7-7.7); Neutrophil % 59.3 % (47-70); Platelet Count 220 K/mm3 (150-450); RBC Distribution Width CV 13.2 % (11.6-14.6); RBC Distribution Width SD 45.7 fl (35.1-43.9); Red Blood Count 4.61 M/mm3 (4.6-6.2); White Blood Count 8.5 K/mm3 (4.4-11.0)
[2018-10-26 06:44] LABS: POSITIVE COUNT NO; POSITIVE DIFFERENTIAL NO; POSITIVE MORPHOLOGY NO
[2018-10-26 06:54] LABS: Anion Gap 10 (5-15); BUN 27 mg/dL (7-18); BUN/Creat Ratio 24.8 RATIO (10-20); Calcium,Total 8.4 mg/dL (8.5-10.1); Chloride 108 mmol/L (98-107); Creatinine, Serum 1.09 mg/dL (0.70-1.30); EST Glomerular Filtration Rate 70 mL/min (>60); Est Glom Filt Rate - Afr Amer 85 mL/min (>60); Estimated Creatinine Clearance 70.18 ml/min; Glucose 281 mg/dL (74-106); Magnesium 1.6 mg/dL (1.6-2.6); Potassium 3.6 mmol/L (3.5-5.1); Sodium Level 142 mmol/L (136-145)
[2018-10-26 07:03] LABS: Cholesterol 140 mg/dL (200); High Density Lipoprotein 35 mg/dL; Phosphorus 1.8 mg/dL (2.5-4.9); Triglycerides 190 mg/dL; Very Low Density Lipoprotein 38 mg/dL (5-40)
--- NOTE | 2018-10-26 08:38 | PCM.PN.SRG ---
Patient Problems: Active and Suspected Problems SBO (small bowel obstruction) (Acute) Subjective: Patient has had several liquid bowel movements overnight and he is passing flatus. He denies any abdominal pain. - Physical Exam General: Alert, Oriented x3, Cooperative Neck: No JVD Lungs: Normal air movement Cardiovascular: Regular rate, Regular Rhythm Abdomen: Soft, Non Tender, Non-Distended Extremities: No clubbing Musculoskeletal: No Muscle Wasting Lymphatic: No Cervical, Supraclavicular, or Inguinal Adenopathy Vital Signs Temp Pulse Resp BP Pulse Ox 97.9 F 58 L 18 133/80 H 94 10/26/18 02:40 10/26/18 05:28 10/26/18 02:40 10/26/18 02:40 10/26/18 02:40 Oxygen Delivery Method Room Air Weight: 219 lb 8 oz Body Mass Index (BMI) 28.1 Intake and Output for Last 24 Hours 10/24/18 10/25/18 10/26/18 23:59 23:59 23:59 Intake Total 1228 / 1228 776 / 776 Output Total 1800 / 1800 100 / 100 Balance -572 / -572 676 / 676 Laboratory Tests Past 24 Hrs 10/25/18 10/25/18 10/25/18 09:39 09:39 09:39 WBC 10.3 RBC 5.09 Hgb 16.1 Hct 48.3 MCV 94.9 H MCH 31.6 MCHC 33.3 RDW 13.2 RDW Differential 45.4 H Plt Count 223 MPV 9.5 Immature Gran % (Auto) 0.300 Neut % (Auto) 68.9 Lymph % (Auto) 19.9 [place] % (Auto) 10.5 H Eos % (Auto) 0.2 Baso % (Auto) 0.2 Absolute Neuts (auto) 7.1 Absolute Lymphs (auto) 2.05 Total Counted Not Reportable Sodium 131 L Potassium 4.0 Chloride 97 L Carbon Dioxide 24.0 Anion Gap 10 BUN 28 H Creatinine 1.36 H Estim Creat Clear Calc 56.24 Est GFR (MDRD) Af Amer 66 Est GFR (MDRD) Non-Af 55 L BUN/Creatinine Ratio 20.6 H Glucose 447 H Hemoglobin A1c 11.3 H Calcium 9.5 Phosphorus Magnesium Total Bilirubin 1.20 H AST 25 ALT 30 Alkaline Phosphatase 93 Total Protein 7.7 Albumin 3.6 Globulin 4.1 Albumin/Globulin Ratio 0.9 Triglycerides Cholesterol LDL Cholesterol VLDL Cholesterol HDL Cholesterol Lipase 144 Urine Color Urine Clarity Urine pH Ur Specific [place] Urine Protein Urine Glucose (UA) Urine Ketones Urine Occult Blood Urine Nitrite Urine Bilirubin Urine Urobilinogen Ur Leukocyte Esterase Urine RBC Urine WBC Ur Squamous Epith Cells Urine Bacteria Urine Mucus 10/25/18 10/26/18 10/26/18 10:55 05:40 06:08 WBC 8.5 RBC 4.61 Hgb 14.8 Hct 44.7 MCV 97.0 H MCH 32.1 H MCHC 33.1 RDW 13.2 RDW Differential 45.7 H Plt Count 220 MPV 9.6 Immature Gran % (Auto) 0.500 Neut % (Auto) 59.3 Lymph % (Auto) 27.0 [place] % (Auto) 12.4 H Eos % (Auto) 0.6 Baso % (Auto) 0.2 Absolute Neuts (auto) 5.0 Absolute Lymphs (auto) 2.29 Total Counted Not Reportable Sodium 142 Potassium 3.6 Chloride 108 H Carbon Dioxide 24.0 Anion Gap 10 BUN 27 H Creatinine 1.09 Estim Creat Clear Calc 70.18 Est GFR (MDRD) Af Amer 85 Est GFR (MDRD) Non-Af 70 BUN/Creatinine Ratio 24.8 H Glucose 281 H Hemoglobin A1c Calcium 8.4 L Phosphorus Magnesium 1.6 Total Bilirubin AST ALT Alkaline Phosphatase Total Protein Albumin Globulin Albumin/Globulin Ratio Triglycerides Cholesterol LDL Cholesterol VLDL Cholesterol HDL Cholesterol Lipase Urine Color Yellow Urine Clarity Clear Urine pH 6.0 Ur Specific [place] 1.015 Urine Protein Negative Urine Glucose (UA) 1000 H Urine Ketones 50 H Urine Occult Blood Negative Urine Nitrite Negative Urine Bilirubin Negative Urine Urobilinogen Normal Ur Leukocyte Esterase Negative Urine RBC 0 SEEN Urine WBC 0 SEEN Ur Squamous Epith Cells 0 SEEN Urine Bacteria 0 SEEN Urine Mucus 0 SEEN 10/26/18 06:08 WBC RBC Hgb Hct MCV MCH MCHC RDW RDW Differential Plt Count MPV Immature Gran % (Auto) Neut % (Auto) Lymph % (Auto) [place] % (Auto) Eos % (Auto) Baso % (Auto) Absolute Neuts (auto) Absolute Lymphs (auto) Total Counted Sodium Potassium Chloride Carbon Dioxide Anion Gap BUN Creatinine Estim Creat Clear Calc Est GFR (MDRD) Af Amer Est GFR (MDRD) Non-Af BUN/Creatinine Ratio Glucose Hemoglobin A1c Calcium Phosphorus 1.8 L Magnesium Total Bilirubin AST ALT Alkaline Phosphatase Total Protein Albumin Globulin Albumin/Globulin Ratio Triglycerides 190 Cholesterol 140 LDL Cholesterol 67 VLDL Cholesterol 38 HDL Cholesterol 35 L Lipase Urine Color Urine Clarity Urine pH Ur Specific [place] Urine Protein Urine Glucose (UA) Urine Ketones Urine Occult Blood Urine Nitrite Urine Bilirubin Urine Urobilinogen Ur Leukocyte Esterase Urine RBC Urine WBC Ur Squamous Epith Cells Urine Bacteria Urine Mucus POC Glucose 10/26/18 10/25/18 10/25/18 05:25 23:31 18:29 POC Glucose 316 H 236 H 249 H 10/25/18 15:25 POC Glucose 333 H Medical Necessity - Tobacco Use Smoking Status: Never smoker Assessment/Plan All Active Problems SBO (small bowel obstruction) (Acute) 73-year-old male with ileus versus incomplete bowel obstruction 1. The patient had Gastrografin study done yesterday and this morning it shows that the Gastrografin has made it to the entirety of the colon. This rules out a complete bowel obstruction but the patient is still having dilation of the small bowel. He says he is passing gas but the NG output is still very dark and non-serous. 2. This morning I would recommend continuing NG suctioning and seeing how he does throughout the day if he is still feeling well later I will consider removing the NG. He still has significant a dilated loops of small bowel in the x-ray this morning. I would like to see his NG output decreased and become more clear before removing the tube as it already dislodged and had to be replaced last night. Gary Chaves MD Pager: [facility] [address] [place] [address], [address] [place] [address] Office:
[2018-10-26 11:36] LABS: Bedside Glucose 250 mg/dL (70-110)
--- NOTE | 2018-10-26 14:00 | RAD_ITS ---
STUDY: X-RAY - ABDOMEN/PELVIS REASON FOR EXAM: Male, 73 years old. Ileus vs partial small bowel obstruction TECHNIQUE: AP supine and upright views of the abdomen and pelvis. COMPARISON: Numerous prior studies including earlier today at 5:09 AM.. FINDINGS: Nasogastric tube is seen in position compatible with the proximal duodenum. No change in the bowel gas pattern. Contrast is seen throughout the large bowel which is not distended, and numerous markedly distended loops of small bowel are seen some of which still contain contrast and some of which may be developing wall thickening. Findings are most suggestive of high-grade partial obstruction. Again note that there has been no change since radiographs of earlier today. RAD/Abd Inc Decub and/or Erect IMPRESSION: Continued abnormal bowel gas pattern. Findings consistent with high-grade partial small bowel obstruction. Some loops may be developing wall thickening/edema. Electronically Signed: Deny Chavez MD at 16:11 EST , Service support ,
--- NOTE | 2018-10-26 14:20 | PN_ITS ---
Patient Problems: Active and Suspected Problems SBO (small bowel obstruction) (Acute) Subjective: Patient seen and examined. Reports overall he feels improved. Denies further abdominal pain. Has had bowel movements and passing flatus. Continues to have significant output from NG. Complains of discomfort regarding NG. Denies other complaints. - Physical Exam General: Alert, Oriented x3, Cooperative HEENT: Atraumatic, PERRLA, EOMI, Normocephalic Oral: Dry Mucosa Neck: Supple, No JVD, Negative Carotid Bruits Lungs: Clear to auscultation, Normal air movement Cardiovascular: Regular rate, Regular Rhythm, Normal S1, Normal S2, No murmurs Abdomen: Bowel Sounds Present, Soft, Non Tender, Distended - Improved Extremities: No clubbing, No cyanosis, No edema, Capillary Refill Less than 3 Seconds Skin: No rashes, No breakdown Musculoskeletal: No Tenderness to Palpation of Joints or Extremities Neurological: Cranial nerves II-XII grossly intact, Neuro grossly intact Psych/Mental Status: Normal Affect, Appropriate Vital Signs Temp Pulse Resp BP Pulse Ox 98.3 F 56 L 16 137/73 H 95 10/26/18 08:40 10/26/18 10:00 10/26/18 08:40 10/26/18 08:40 10/26/18 08:40 Oxygen Delivery Method Room Air Weight: 219 lb 5.759 oz Body Mass Index (BMI) 28.1 Intake and Output for Last 24 Hours 10/24/18 10/25/18 10/26/18 23:59 23:59 23:59 Intake Total 1228 / 1228 1678 / 1678 Output Total 1800 / 1800 200 / 200 Balance -572 / -572 1478 / 1478 Laboratory Tests Past 24 Hrs 10/25/18 10/26/18 10/26/18 09:39 05:40 06:08 WBC 8.5 RBC 4.61 Hgb 14.8 Hct 44.7 MCV 97.0 H MCH 32.1 H MCHC 33.1 RDW 13.2 RDW Differential 45.7 H Plt Count 220 MPV 9.6 Immature Gran % (Auto) 0.500 Neut % (Auto) 59.3 Lymph % (Auto) 27.0 [place] % (Auto) 12.4 H Eos % (Auto) 0.6 Baso % (Auto) 0.2 Absolute Neuts (auto) 5.0 Absolute Lymphs (auto) 2.29 Total Counted Not Reportable Sodium 142 Potassium 3.6 Chloride 108 H Carbon Dioxide 24.0 Anion Gap 10 BUN 27 H Creatinine 1.09 Estim Creat Clear Calc 70.18 Est GFR (MDRD) Af Amer 85 Est GFR (MDRD) Non-Af 70 BUN/Creatinine Ratio 24.8 H Glucose 281 H Hemoglobin A1c 11.3 H Calcium 8.4 L Phosphorus Magnesium 1.6 Triglycerides Cholesterol LDL Cholesterol VLDL Cholesterol HDL Cholesterol 10/26/18 06:08 WBC RBC Hgb Hct MCV MCH MCHC RDW RDW Differential Plt Count MPV Immature Gran % (Auto) Neut % (Auto) Lymph % (Auto) [place] % (Auto) Eos % (Auto) Baso % (Auto) Absolute Neuts (auto) Absolute Lymphs (auto) Total Counted Sodium Potassium Chloride Carbon Dioxide Anion Gap BUN Creatinine Estim Creat Clear Calc Est GFR (MDRD) Af Amer Est GFR (MDRD) Non-Af BUN/Creatinine Ratio Glucose Hemoglobin A1c Calcium Phosphorus 1.8 L Magnesium Triglycerides 190 Cholesterol 140 LDL Cholesterol 67 VLDL Cholesterol 38 HDL Cholesterol 35 L POC Glucose 10/26/18 10/26/18 10/25/18 11:26 05:25 23:31 POC Glucose 250 H 316 H 236 H 10/25/18 10/25/18 18:29 15:25 POC Glucose 249 H 333 H Medical Necessity - Tobacco Use Smoking Status: Never smoker Assessment/Plan All Active Problems SBO (small bowel obstruction) (Acute) 1. Incomplete small bowel obstruction vs ileus-CT of abdomen and pelvis showed small bowel obstruction with transition point in the proximal ileum. Fluid distended stomach. Sigmoid diverticulosis. Enlarged prostate. NG in place with copious amount of dark output. N.p.o. IV fluids. Dr. Chaves consulted. Patient had Gastrografin study which showed Gastrografin through entire colon. Small bowel dilation. Patient had bowel movement and passing gas. Plan to continue NG suction until output decreases. Check stool for enteric pathogen. Repeat abdominal imaging ordered for this afternoon. 2. Type 2 diabetes mellitus, poorly controlled-oral regimen on hold given n.p.o. status. Accu-Cheks Q6 hour with SSI. Hemoglobin A1c 11.3%. Will begin levemir 10 units nightly given n.p.o. status. Anticipate patient will require insulin at discharge. 3. Paroxysmal atrial fibrillation-Hold Eliquis. Scheduled IV Lopressor. 4. Hypertension-resume home atenolol, lisinopril, verapamil regimen when able to tolerate oral intake. Scheduled IV Lopressor 5 mg every 8 with as needed hydralazine. 5. Acute kidney injury secondary to dehydration as a result of #1. Resolved with IV fluids. Trend BMP. DVT prophylaxis-Lovenox sc This patient was seen by REZA Fiore under the supervision of Dr. Vee.
--- NOTE | 2018-10-26 14:56 | PCM.PN.BLA ---
Progress Note KUB shows some improvement but still dilated small bowel loops. Will remove NG, continue NPO until xray tomorrow. If continued improvement will start diet tomorrow. Gary Chaves
[2018-10-26 19:41] LABS: Bedside Glucose 217 mg/dL (70-110)
[2018-10-26 22:11] LABS: Bedside Glucose 150 mg/dL (70-110)
[2018-10-27] VITALS (10 sets, daily range): BP systolic 154–173; BP diastolic 59–70; PULSE 56–70; RESP 16–18; TEMP 36.3–36.9; O2SAT 96–98
[2018-10-27] MEDS: 0.9% Normal Saline 1,000 ML 150 ML IV ×2 (02:00→09:43)
[2018-10-27 05:48] LABS: Absolute Lymphocyte Count 3.07 X10^3/ul (0.83-4.51); Absolute Neutrophil Count 4.8 X10^3/uL (2.0-7.7); Basophil# 0.02 X10^3/uL; Basophil% 0.2 % (0-1); Eosinophil# 0.09 X10^3/uL; Hemoglobin 14.9 g/dl (13.0-16.5); Lymphocyte # 3.07 X10^3/ul (4.0); Lymphocyte % 33.6 % (19-41); Mean Corp Hgb Conc 33.1 g/gl (32-36); Mean Corpuscular Hgb 32.1 pg (27.0-32.0); Mean Platelet Vol. 9.3 fl (6.2-12.0); Neutrophil # 4.81 X10^3/uL (2.7-7.7); Neutrophil % 52.8 % (47-70); Platelet Count 218 K/mm3 (150-450); RBC Distribution Width CV 13.2 % (11.6-14.6); RBC Distribution Width SD 46.1 fl (35.1-43.9); Red Blood Count 4.64 M/mm3 (4.6-6.2); White Blood Count 9.1 K/mm3 (4.4-11.0)
--- NOTE | 2018-10-27 05:55 | RAD_ITS ---
STUDY: X-RAY - ABDOMEN/PELVIS REASON FOR EXAM: Male, 73 years old. Shortness of breath. Question obstruction. TECHNIQUE: Two AP supine views of the abdomen and pelvis. COMPARISON: Abdomen, October 26, 2017. FINDINGS: Normal visualized lung bases. There is an NG tube with its tip in expected position of the distal stomach/proximal duodenum. There is there is persistent slightly increased small bowel distention when compared to the previous examination. Again contrast is seen in the distal ileum and throughout a nondistended colon suggesting partial obstruction. There is no demonstrated free abdominal air. The visualized liver, spleen and kidneys are grossly normal in size and morphology. Normal soft tissue structures. Normal visualized osseous structures. RAD/Abdomen Single View (Portable) IMPRESSION: 1. NG tube as described. 2. Persistent mildly increased small bowel distention. 3. Contrast throughout the distal small bowel and nondistended colon. Electronically Signed: Cristi Brady DO at 8:16 EST Tel [phone], Service support ,
[2018-10-27 05:56] LABS: POSITIVE COUNT NO; POSITIVE DIFFERENTIAL NO; POSITIVE MORPHOLOGY NO
[2018-10-27 06:05] LABS: Anion Gap 13 (5-15); BUN 21 mg/dL (7-18); Calcium,Total 7.9 mg/dL (8.5-10.1); Chloride 111 mmol/L (98-107); EST Glomerular Filtration Rate 78 mL/min (>60); Est Glom Filt Rate - Afr Amer 94 mL/min (>60); Estimated Creatinine Clearance 76.49 ml/min; Glucose 221 mg/dL (74-106); Potassium 3.5 mmol/L (3.5-5.1); Sodium Level 146 mmol/L (136-145)
[2018-10-27] MEDS: Insulin Lispro 100 UNIT/ML INSULN.PEN SC ×4 (06:43→21:26)
--- NOTE | 2018-10-27 06:59 | PCM.PN.SRG ---
Patient Problems: Active and Suspected Problems SBO (small bowel obstruction) (Acute) Subjective: Patient states he has absolutely no abdominal pain. He has been passing gas urinating without difficulty Objective: Patient has an entirely benign abdomen he has no rebound no guarding no tenderness no tenderness to deep palpation I cannot palpate any masses - Physical Exam Vital Signs Temp Pulse Resp BP Pulse Ox 98.1 F 57 L 16 173/61 H 96 10/27/18 02:00 10/27/18 06:43 10/27/18 02:00 10/27/18 02:00 10/27/18 02:00 Oxygen Delivery Method Room Air Weight: 219 lb 5.759 oz Body Mass Index (BMI) 28.1 Intake and Output for Last 24 Hours 10/25/18 10/26/18 10/27/18 23:59 23:59 23:59 Intake Total 1228 / 1228 2632 / 2632 1053 / 1053 Output Total 1800 / 1800 700 / 700 Balance -572 / -572 1932 / 1932 1053 / 1053 Laboratory Tests Past 24 Hrs 10/26/18 10/27/18 10/27/18 06:08 05:35 05:35 WBC 9.1 RBC 4.64 Hgb 14.9 Hct 45.0 MCV 97.0 H MCH 32.1 H MCHC 33.1 RDW 13.2 RDW Differential 46.1 H Plt Count 218 MPV 9.3 Immature Gran % (Auto) 0.400 Neut % (Auto) 52.8 Lymph % (Auto) 33.6 [place] % (Auto) 12.0 H Eos % (Auto) 1.0 Baso % (Auto) 0.2 Absolute Neuts (auto) 4.8 Absolute Lymphs (auto) 3.07 Total Counted Not Reportable Sodium 146 H Potassium 3.5 Chloride 111 H Carbon Dioxide 22.0 Anion Gap 13 BUN 21 H Creatinine 1.00 Estim Creat Clear Calc 76.49 Est GFR (MDRD) Af Amer 94 Est GFR (MDRD) Non-Af 78 BUN/Creatinine Ratio 21.0 H Glucose 221 H Calcium 7.9 L Phosphorus 1.8 L Triglycerides 190 Cholesterol 140 LDL Cholesterol 67 VLDL Cholesterol 38 HDL Cholesterol 35 L POC Glucose 10/26/18 10/26/18 10/26/18 22:03 18:30 11:26 POC Glucose 150 H 217 H 250 H Medical Necessity - Tobacco Use Smoking Status: Never smoker Assessment/Plan All Active Problems SBO (small bowel obstruction) (Acute) I do not think there is any change in his abdominal x-rays. His white count still remains normal and there is no signs of a left shift. At this point I am going to remove his NG tube start him on clear liquids and see how he does. Still concerned that there is something going on in the right lower quadrant that may be causing a partial small bowel obstruction.
[2018-10-27 07:05] LABS: Bedside Glucose 203 mg/dL (70-110)
[2018-10-27 11:35] LABS: Bedside Glucose 277 mg/dL (70-110)
--- NOTE | 2018-10-27 13:37 | PCM.PROGNOTE ---
Patient Problems: Active and Suspected Problems SBO (small bowel obstruction) (Acute) Subjective: Patient seen and examined. Tolerating clear liquids thus far. Denies further abdominal pain. Had bowel movement this morning. - Physical Exam General: Alert, Oriented x3, Cooperative HEENT: Atraumatic, PERRLA, EOMI, Normocephalic Neck: Supple, No JVD, Negative Carotid Bruits Lungs: Clear to auscultation, Normal air movement Cardiovascular: Regular rate, Regular Rhythm, Normal S1, Normal S2, No murmurs Abdomen: Bowel Sounds Present, Soft, Non Tender, Non-Distended, Obese Extremities: No clubbing, No cyanosis, No edema, Capillary Refill Less than 3 Seconds Skin: No rashes, No breakdown Musculoskeletal: No Tenderness to Palpation of Joints or Extremities Neurological: Cranial nerves II-XII grossly intact, Neuro grossly intact Psych/Mental Status: Normal Affect, Appropriate Vital Signs Temp Pulse Resp BP Pulse Ox 98.0 F 69 18 154/60 H 98 10/27/18 10:03 10/27/18 12:46 10/27/18 10:03 10/27/18 10:03 10/27/18 10:03 Oxygen Delivery Method Room Air Weight: 219 lb 5.759 oz Body Mass Index (BMI) 28.1 Intake and Output for Last 24 Hours 10/25/18 10/26/18 10/27/18 23:59 23:59 23:59 Intake Total 1228 / 1228 2632 / 2632 1653 / 1653 Output Total 1800 / 1800 700 / 700 Balance -572 / -572 1932 / 1932 1653 / 1653 Laboratory Tests Past 24 Hrs 10/27/18 10/27/18 05:35 05:35 WBC 9.1 RBC 4.64 Hgb 14.9 Hct 45.0 MCV 97.0 H MCH 32.1 H MCHC 33.1 RDW 13.2 RDW Differential 46.1 H Plt Count 218 MPV 9.3 Immature Gran % (Auto) 0.400 Neut % (Auto) 52.8 Lymph % (Auto) 33.6 Hickman % (Auto) 12.0 H Eos % (Auto) 1.0 Baso % (Auto) 0.2 Absolute Neuts (auto) 4.8 Absolute Lymphs (auto) 3.07 Total Counted Not Reportable Sodium 146 H Potassium 3.5 Chloride 111 H Carbon Dioxide 22.0 Anion Gap 13 BUN 21 H Creatinine 1.00 Estim Creat Clear Calc 76.49 Est GFR (MDRD) Af Amer 94 Est GFR (MDRD) Non-Af 78 BUN/Creatinine Ratio 21.0 H Glucose 221 H Calcium 7.9 L POC Glucose 10/27/18 10/27/18 10/26/18 11:31 06:40 22:03 POC Glucose 277 H 203 H 150 H 10/26/18 18:30 POC Glucose 217 H Medical Necessity - Tobacco Use Smoking Status: Never smoker Assessment/Plan All Active Problems SBO (small bowel obstruction) (Acute) 1. Incomplete small bowel obstruction vs ileus-CT of abdomen and pelvis showed small bowel obstruction with transition point in the proximal ileum. Fluid distended stomach. Sigmoid diverticulosis. Enlarged prostate. Dr. Chaves consulted. NG removed 10/26/2018. Started on clear liquids this morning, patient tolerating thus far. Patient had Gastrografin study which showed Gastrografin through entire colon. Small bowel dilation. Repeat KUB 10/26/18 showed improvement but continued dilated small bowel loops. KUB 10/27/2018 showed no significant change. Monitor patient on clear liquids. 2. Type 2 diabetes mellitus, poorly controlled-Hemoglobin A1c 11.3%. Accu-Cheks AC at bedtime with sliding scale insulin. Continue Levemir, increase to 15 units nightly. 3. Paroxysmal atrial fibrillation-Hold Eliquis. Continue home atenolol regimen. 4. Hypertension-resume home atenolol, lisinopril, verapamil regimen given tolerating oral intake. 5. Acute kidney injury secondary to dehydration as a result of #1. Resolved with IV fluids. Trend BMP. DVT prophylaxis-Lovenox sc This patient was seen by REZA Fiore under the supervision of Dr. Vee.
[2018-10-27 16:30] LABS: Bedside Glucose 257 mg/dL (70-110)
[2018-10-27] MEDS: 0.9% NaCl Peripheral Flush Adult/Peds IV (21:29)
[2018-10-27 21:36] LABS: Bedside Glucose 245 mg/dL (70-110)
[2018-10-28 00:58] VITALS: PULSE 66
[2018-10-28 03:59] VITALS: PULSE 62
[2018-10-28 04:00] VITALS: BP 143/51; PULSE 61; RESP 14; TEMP 36.6; O2SAT 98
[2018-10-28 06:59] VITALS: PULSE 67
[2018-10-28] MEDS: Insulin Lispro 100 UNIT/ML INSULN.PEN SC (07:01)
[2018-10-28 07:06] LABS: Bedside Glucose 158 mg/dL (70-110)
--- NOTE | 2018-10-28 07:40 | DCINST_ITS ---
Discharge Diet: Light diet - advance as tolerated - If you have questions about your diet instructions, please talk to your doctor. Discharge Activity: May Not Drive - for 1 week or while taking narcotic pain medicine. May shower in (days): 1 Lifting Restrictions: 10 pounds Call your doctor if your incision/area has: Continuous Slow Oozing, Sudden Increased Bleeding, Increased Pain/ Swelling, Increased Redness, Foul Smelling Discharge Call your doctor if you observe: Fever of 101 or Higher Suture Line Care: Avoid Pulling/Pushing, Avoid Pinching/Bending Additional Dressing/Incision Instructions:: Change or remove dressing in 4 days. Leave steri-strips in place for 1 week. Allergies/Adverse Reactions: Allergies No Known Allergies Allergy (Verified 10/25/18 09:07) Medications to take at Discharge Apixaban [Eliquis] 5 mg PO DAILY 10/25/18 Atenolol [Tenormin (beta wero)] 100 mg PO DAILY 10/25/18 Lisinopril/Hydrochlorothiazide [Lisinopril-Hctz 10-12.5 mg Tab] 1 each PO DAILY 10/25/18 Metformin HCl [Glucophage] 1,000 mg PO BIDCM 10/25/18 Nateglinide 1 tab PO DAILY 10/25/18 Tadalafil [Cialis] 5 mg PO DAILY PRN 10/25/18 Verapamil [Calan Sr] 240 mg PO DAILY 10/25/18 Primary Care Physician: Care Physician,No Primary [Primary Care Provider] - Test Results: Test results from this visit will be discussed in further detail at your follow- up appointment, if applicable. Please Follow Up With: Juan Gutierrez MD - [phone] When: Call to make an appointment to be seen in about 10 days.
--- NOTE | 2018-10-28 07:40 | PCM.PN.SRG ---
Patient Problems: Active and Suspected Problems SBO (small bowel obstruction) (Acute) Subjective: She is complaining of no pain no nausea no vomiting patient is having bowel movements Objective: Abdomen is soft and nontender - Physical Exam Vital Signs Temp Pulse Resp BP Pulse Ox 97.9 F 67 14 143/51 H 98 10/28/18 04:00 10/28/18 06:59 10/28/18 04:00 10/28/18 04:00 10/28/18 04:00 Oxygen Delivery Method Room Air Weight: 219 lb 5.759 oz Body Mass Index (BMI) 28.1 Intake and Output for Last 24 Hours 10/26/18 10/27/18 10/28/18 23:59 23:59 23:59 Intake Total 2632 / 2632 3258 / 3258 1080 / 1080 Output Total 700 / 700 Balance 1932 / 1932 3258 / 3258 1080 / 1080 Microbiology Past 72 Hours 10/26/18 15:25 Enteric Bacteriology - Final Stool POC Glucose 10/28/18 10/27/18 10/27/18 07:00 21:24 16:27 POC Glucose 158 H 245 H 257 H 10/27/18 11:31 POC Glucose 277 H Medical Necessity - Tobacco Use Smoking Status: Never smoker Assessment/Plan All Active Problems SBO (small bowel obstruction) (Acute) I believe he is a good candidate to be discharged today. He is to follow-up next week in the office. He is to remain on a light diet.
--- NOTE | 2018-10-28 09:38 | PCM.DC.SUM ---
Discharge Date and Diagnosis Date of Admission: 10/25/18 Date of Discharge: 10/28/18 - Primary Discharge Diagnosis Active and Suspected Problems 1. Partial small bowel obstruction vs ileus 2. Type 2 diabetes mellitus, poorly controlled 3. Paroxysmal atrial fibrillation 4. Hypertension 5. Acute kidney injury secondary to dehydration as a result of #1 - Secondary Discharge Diagnosis Chronic Problems Type 2 diabetes mellitus (Chronic) HTN (hypertension) (Chronic) Atrial fibrillation (Chronic) Hospital Course and Treatment Imaging Results: Diagnostic Data Abdomen/Pelvis CT 10/25/18 09:17 IMPRESSION: Findings indicative of small bowel obstruction with the transition point in the proximal ileum. Fluid distended stomach. Sigmoid diverticulosis. Enlarged prostate. Electronically Signed: Huy Dodson, at 11:22 EST , Service support , Abdomen X-Ray 10/26/18 14:00 IMPRESSION: Continued abnormal bowel gas pattern. Findings consistent with high-grade partial small bowel obstruction. Some loops may be developing wall thickening/edema. Electronically Signed: Deny Chavez MD at 16:11 EST , Service support , KUB X-Ray 10/27/18 05:55 IMPRESSION: 1. NG tube as described. 2. Persistent mildly increased small bowel distention. 3. Contrast throughout the distal small bowel and nondistended colon. Electronically Signed: Cristi Brady DO at 8:16 EST Tel [phone], Service support , Dr. Gutierrez- General surgery Operations: None Procedures: None Summary of Care Provided: The patient is a 73 year old M admitted 10/25/2018 due to abdominal pain. 1. Incomplete small bowel obstruction vs ileus-CT of abdomen and pelvis showed small bowel obstruction with transition point in the proximal ileum. Fluid distended stomach. Sigmoid diverticulosis. Enlarged prostate. General surgery consulted. NG removed 10/26/2018. Patient had Gastrografin study which showed Gastrografin through entire colon. Small bowel dilation. Repeat KUB 10/26/18 showed improvement but continued dilated small bowel loops. KUB 10/27/2018 showed no significant change. Patient tolerating full liquid diet, continues to have bowel movements and passing flatus. Denies further abdominal pain. He will continue light diet and advance as tolerated. Follow-up with Dr. Gutierrez, general surgery in 10 days. Follow-up with primary care physician in 3-5 days. 2. Type 2 diabetes mellitus, poorly controlled-Hemoglobin A1c 11.3%. Feel patient should be initiated on insulin however he would like primary care physician to make any adjustments regarding his diabetes regimen. Therefore, will defer to primary care physician. Recommended early follow-up as blood glucose has been poorly controlled. He is already on high-dose metformin in addition to nateglinide. 3. Paroxysmal atrial fibrillation-continue Eliquis and atenolol regimen. 4. Hypertension-resume home atenolol, lisinopril, verapamil regimen. 5. Acute kidney injury secondary to dehydration as a result of #1. Resolved with IV fluids. General: Alert, Oriented x3, Cooperative HEENT: Atraumatic, PERRLA, EOMI, Normocephalic Neck: Supple, No JVD, Negative Carotid Bruits Lungs: Clear to auscultation, Normal air movement Cardiovascular: Regular rate, Regular Rhythm, Normal S1, Normal S2, No murmurs Abdomen: Bowel Sounds Present, Soft, Non Tender, Non-Distended, Obese Extremities: No clubbing, No cyanosis, No edema, Capillary Refill Less than 3 Seconds Skin: No rashes, No breakdown Musculoskeletal: No Tenderness to Palpation of Joints or Extremities Neurological: Cranial nerves II-XII grossly intact, Neuro grossly intact Psych/Mental Status: Normal Affect, Appropriate Patient seen and examined prior to discharge. Physical assessment as noted above. Patient is stable for discharge with follow up recommendations as noted above. This patient was seen by REZA Fiore under the supervision of Dr. Vee. - Physical Exam Vital Signs Temp Pulse Resp BP Pulse Ox 97.9 F 67 14 143/51 H 98 10/28/18 04:00 10/28/18 06:59 10/28/18 04:00 10/28/18 04:00 10/28/18 04:00 Oxygen Delivery Method Room Air Weight: 219 lb 5.759 oz Body Mass Index (BMI) 28.1 Intake and Output for Last 24 Hours 10/26/18 10/27/18 10/28/18 23:59 23:59 23:59 Intake Total 2632 / 2632 3258 / 3258 1080 / 1080 Output Total 700 / 700 Balance 1931 / 193 3258 / 3258 1080 / 1080 Microbiology Past 72 Hours 10/26/18 15:25 Enteric Bacteriology - Final Stool POC Glucose 10/28/18 10/27/18 10/27/18 07:00 21:24 16:27 POC Glucose 158 H 245 H 257 H 10/27/18 11:31 POC Glucose 277 H Discharge Diet: Light diet - advance as tolerated - If you have questions about your diet instructions, please talk to your doctor. Call your doctor if you observe: Fever of 101 or Higher, Inability to have a bowel movement, Uncontrolled pain Additional Dressing/Incision Instructions:: Change or remove dressing in 4 days. Leave steri-strips in place for 1 week. Home Medications: Medications to take at Discharge Apixaban [Eliquis] 5 mg PO DAILY 10/25/18 Atenolol [Tenormin (beta wero)] 100 mg PO DAILY 10/25/18 Lisinopril/Hydrochlorothiazide [Lisinopril-Hctz 10-12.5 mg Tab] 1 each PO DAILY 10/25/18 Metformin HCl [Glucophage] 1,000 mg PO BIDCM 10/25/18 Nateglinide 1 tab PO DAILY 10/25/18 Tadalafil [Cialis] 5 mg PO DAILY PRN 10/25/18 Verapamil [Calan Sr] 240 mg PO DAILY 10/25/18 Primary Care Physician: Care Physician,No Primary [Primary Care Provider] - Please Follow Up With: Juan Gutierrez MD - [phone] When: Call to make an appointment to be seen in about 10 days. Please Follow Up With: Dr. Morgan, PCP When: 3-5 days Disposition: Home Minutes spent on discharge:: 35 Patient Condition:: Stable Medical Necessity - Tobacco Use Smoking Status: Never smoker Meaningful Use Info Meaningful Use Diagnoses (Choose all that apply): None applicable
--- NOTE | 2018-10-28 09:49 | DS.PCM_ITS ---
Discharge Date and Diagnosis Date of Admission: 10/25/18 Date of Discharge: 10/28/18 - Primary Discharge Diagnosis Active and Suspected Problems 1. Partial small bowel obstruction vs ileus 2. Type 2 diabetes mellitus, poorly controlled 3. Paroxysmal atrial fibrillation 4. Hypertension 5. Acute kidney injury secondary to dehydration as a result of #1 - Secondary Discharge Diagnosis Chronic Problems Type 2 diabetes mellitus (Chronic) HTN (hypertension) (Chronic) Atrial fibrillation (Chronic) Hospital Course and Treatment Imaging Results: Diagnostic Data Abdomen/Pelvis CT 10/25/18 09:17 IMPRESSION: Findings indicative of small bowel obstruction with the transition point in the proximal ileum. Fluid distended stomach. Sigmoid diverticulosis. Enlarged prostate. Electronically Signed: Huy Dodson, at 11:22 EST , Service support , Abdomen X-Ray 10/26/18 14:00 IMPRESSION: Continued abnormal bowel gas pattern. Findings consistent with high-grade partial small bowel obstruction. Some loops may be developing wall thickening/edema. Electronically Signed: Deny Chavez MD at 16:11 EST , Service support , KUB X-Ray 10/27/18 05:55 IMPRESSION: 1. NG tube as described. 2. Persistent mildly increased small bowel distention. 3. Contrast throughout the distal small bowel and nondistended colon. Electronically Signed: Cristi Brady DO at 8:16 EST Tel [phone], Service support , Dr. Gutierrez- General surgery Operations: None Procedures: None Summary of Care Provided: The patient is a 73 year old M admitted 10/25/2018 due to abdominal pain. 1. Incomplete small bowel obstruction vs ileus-CT of abdomen and pelvis showed small bowel obstruction with transition point in the proximal ileum. Fluid distended stomach. Sigmoid diverticulosis. Enlarged prostate. General surgery consulted. NG removed 10/26/2018. Patient had Gastrografin study which showed Gastrografin through entire colon. Small bowel dilation. Repeat KUB 10/26/18 showed improvement but continued dilated small bowel loops. KUB 10/27/2018 showed no significant change. Patient tolerating full liquid diet, continues to have bowel movements and passing flatus. Denies further abdominal pain. He will continue light diet and advance as tolerated. Follow-up with Dr. Gutierrez, general surgery in 10 days. Follow-up with primary care physician in 3-5 days. 2. Type 2 diabetes mellitus, poorly controlled-Hemoglobin A1c 11.3%. Feel patient should be initiated on insulin however he would like primary care physician to make any adjustments regarding his diabetes regimen. Therefore, will defer to primary care physician. Recommended early follow-up as blood glucose has been poorly controlled. He is already on high-dose metformin in addition to nateglinide. 3. Paroxysmal atrial fibrillation-continue Eliquis and atenolol regimen. 4. Hypertension-resume home atenolol, lisinopril, verapamil regimen. 5. Acute kidney injury secondary to dehydration as a result of #1. Resolved with IV fluids. General: Alert, Oriented x3, Cooperative HEENT: Atraumatic, PERRLA, EOMI, Normocephalic Neck: Supple, No JVD, Negative Carotid Bruits Lungs: Clear to auscultation, Normal air movement Cardiovascular: Regular rate, Regular Rhythm, Normal S1, Normal S2, No murmurs Abdomen: Bowel Sounds Present, Soft, Non Tender, Non-Distended, Obese Extremities: No clubbing, No cyanosis, No edema, Capillary Refill Less than 3 Seconds Skin: No rashes, No breakdown Musculoskeletal: No Tenderness to Palpation of Joints or Extremities Neurological: Cranial nerves II-XII grossly intact, Neuro grossly intact Psych/Mental Status: Normal Affect, Appropriate Patient seen and examined prior to discharge. Physical assessment as noted above. Patient is stable for discharge with follow up recommendations as noted above. This patient was seen by REZA Fiore under the supervision of Dr. Vee. - Physical Exam Vital Signs Temp Pulse Resp BP Pulse Ox 97.9 F 67 14 143/51 H 98 10/28/18 04:00 10/28/18 06:59 10/28/18 04:00 10/28/18 04:00 10/28/18 04:00 Oxygen Delivery Method Room Air Weight: 219 lb 5.759 oz Body Mass Index (BMI) 28.1 Intake and Output for Last 24 Hours 10/26/18 10/27/18 10/28/18 23:59 23:59 23:59 Intake Total 2632 / 2632 3258 / 3258 1080 / 1080 Output Total 700 / 700 Balance 1931 / 193 3258 / 3258 1080 / 1080 Microbiology Past 72 Hours 10/26/18 15:25 Enteric Bacteriology - Final Stool POC Glucose 10/28/18 10/27/18 10/27/18 07:00 21:24 16:27 POC Glucose 158 H 245 H 257 H 10/27/18 11:31 POC Glucose 277 H Discharge Diet: Light diet - advance as tolerated - If you have questions about your diet instructions, please talk to your doctor. Call your doctor if you observe: Fever of 101 or Higher, Inability to have a bowel movement, Uncontrolled pain Additional Dressing/Incision Instructions:: Change or remove dressing in 4 days. Leave steri-strips in place for 1 week. Home Medications: Medications to take at Discharge Apixaban [Eliquis] 5 mg PO DAILY 10/25/18 Atenolol [Tenormin (beta wero)] 100 mg PO DAILY 10/25/18 Lisinopril/Hydrochlorothiazide [Lisinopril-Hctz 10-12.5 mg Tab] 1 each PO DAILY 10/25/18 Metformin HCl [Glucophage] 1,000 mg PO BIDCM 10/25/18 Nateglinide 1 tab PO DAILY 10/25/18 Tadalafil [Cialis] 5 mg PO DAILY PRN 10/25/18 Verapamil [Calan Sr] 240 mg PO DAILY 10/25/18 Primary Care Physician: Care Physician,No Primary [Primary Care Provider] - Please Follow Up With: Juan Gutierrez MD - [phone] When: Call to make an appointment to be seen in about 10 days. Please Follow Up With: Dr. Morgan, PCP When: 3-5 days Disposition: Home Minutes spent on discharge:: 35 Patient Condition:: Stable Medical Necessity - Tobacco Use Smoking Status: Never smoker Meaningful Use Info Meaningful Use Diagnoses (Choose all that apply): None applicable
--- NOTE | 2018-10-28 09:50 | PCM.DC ---
- Discharge Diagnoses Current Active Problems: Current Active and Chronic Problems SBO (small bowel obstruction) (Acute) Type 2 diabetes mellitus (Chronic) HTN (hypertension) (Chronic) Atrial fibrillation (Chronic) You will use the following diet at home:: Other - Light diet, advance as tolerated. Discharge Activity: Return to Normal Activity Call your doctor if you observe: Fever of 101 or Higher, Inability to have a bowel movement, Uncontrolled pain Additional Instructions: Your hemoglobin A1c was 11.3% during admission. You requested that further adjustments be made by primary care physician regarding your medication regimen related to diabetes. You will need to discuss this as soon as possible as your glucose has been poorly controlled. Allergies/Adverse Reactions: Allergies No Known Allergies Allergy (Verified 10/25/18 09:07) Medications to take at Discharge Apixaban [Eliquis] 5 mg PO DAILY 10/25/18 Atenolol [Tenormin (beta wero)] 100 mg PO DAILY 10/25/18 Lisinopril/Hydrochlorothiazide [Lisinopril-Hctz 10-12.5 mg Tab] 1 each PO DAILY 10/25/18 Metformin HCl [Glucophage] 1,000 mg PO BIDCM 10/25/18 Nateglinide 1 tab PO DAILY 10/25/18 Tadalafil [Cialis] 5 mg PO DAILY PRN 10/25/18 Verapamil [Calan Sr] 240 mg PO DAILY 10/25/18 Primary Care Physician: Care Physician,No Primary [Primary Care Provider] - Please follow up with your Primary Care Physician in: Dr. Morgan within 1 Week Test Results: Test results from this visit will be discussed in further detail at your follow-up appointment, if applicable. Please Follow Up With: Juan Gutierrez MD - [phone] When: Call to make an appointment to be seen in about 10 days. Proposed Discharge Date: 10/28/18
--- NOTE | 2018-10-28 09:54 | DCINST_ITS ---
- Discharge Diagnoses Current Active Problems: Current Active and Chronic Problems SBO (small bowel obstruction) (Acute) Type 2 diabetes mellitus (Chronic) HTN (hypertension) (Chronic) Atrial fibrillation (Chronic) You will use the following diet at home:: Other - Light diet, advance as tolerated. Discharge Activity: Return to Normal Activity Call your doctor if you observe: Fever of 101 or Higher, Inability to have a bowel movement, Uncontrolled pain Additional Instructions: Your hemoglobin A1c was 11.3% during admission. You requested that further adjustments be made by primary care physician regarding your medication regimen related to diabetes. You will need to discuss this as soon as possible as your glucose has been poorly controlled. Allergies/Adverse Reactions: Allergies No Known Allergies Allergy (Verified 10/25/18 09:07) Medications to take at Discharge Apixaban [Eliquis] 5 mg PO DAILY 10/25/18 Atenolol [Tenormin (beta wero)] 100 mg PO DAILY 10/25/18 Lisinopril/Hydrochlorothiazide [Lisinopril-Hctz 10-12.5 mg Tab] 1 each PO DAILY 10/25/18 Metformin HCl [Glucophage] 1,000 mg PO BIDCM 10/25/18 Nateglinide 1 tab PO DAILY 10/25/18 Tadalafil [Cialis] 5 mg PO DAILY PRN 10/25/18 Verapamil [Calan Sr] 240 mg PO DAILY 10/25/18 Primary Care Physician: Care Physician,No Primary [Primary Care Provider] - Please follow up with your Primary Care Physician in: Dr. Morgan within 1 Week Test Results: Test results from this visit will be discussed in further detail at your follow- up appointment, if applicable. Please Follow Up With: Juan Gutierrez MD - [phone] When: Call to make an appointment to be seen in about 10 days. Proposed Discharge Date: 10/28/18
--- NOTE | 2018-10-28 09:59 | NURSING ---
pt refused all morning medications said he would take at home. pt also refused hospitalist doctors from proscripting insulin. pt stated he would follow up with his primary doctor.
[2018-10-28 10:00] VITALS: BP 153/90; PULSE 74; RESP 18; TEMP 36.3; O2SAT 99
== END 2018-10-28 11:37 | disposition home or self-care (01) | DRG 389 ==
LOC: ED 10:22 → MS3 12:22
PROVIDERS: Nurse Practitioner Family; Surgery; Admitting Provider Internal Medicine; Emergency Provider Emergency Medicine; Visit Provider Internal Medicine
DX: K56.7 Ileus, unspecified (principal); N17.9 Acute kidney failure, unspecified; K56.600 Partial intestinal obstruction, unspecified as to cause; E11.65 Type 2 diabetes mellitus with hyperglycemia; I48.0 Paroxysmal atrial fibrillation; I10 Essential (primary) hypertension; N52.9 Male erectile dysfunction, unspecified; K57.30 Diverticulosis of large intestine without perforation or abscess without bleeding; N40.0 Benign prostatic hyperplasia without lower urinary tract symptoms; E86.0 Dehydration; Z79.84 Long term (current) use of oral hypoglycemic drugs; Z79.01 Long term (current) use of anticoagulants; Z79.899 Other long term (current) drug therapy
CPT/HCPCS: 36415; 74018; 74019; 74177; 80048; 80053; 80061; 81001; 82962; 83036; 83690; 83735; 84100; 85025; 87506; 93005; 99284; J7030; Q9967; A4216